=== PATIENT | female | born 1955 | race Caucasian/White ===

== ENCOUNTER → 2021-08-07 | Outpatient (CLI) | payer BC ==
--- NOTE | 2021-08-07 14:14 | Diagnostic Imaging Report ---
EXAMINATION: Right ankle 3 views HISTORY: Right foot pain COMPARISON: None available. FINDINGS: There is soft tissue swelling about the ankle. No fracture is seen. Mortise is intact. No acute fracture is present. There is a small heel spur. IMPRESSION: 1. No fracture in the right ankle. Dictated by: Dictated on workstation # [id number]
--- NOTE | 2021-08-07 16:20 | Diagnostic Imaging Report ---
CLINICAL HISTORY: Right foot pain. COMPARISON: None. TECHNIQUE: Three views of the right foot. FINDINGS: There is no acute fracture or dislocation of the right foot. Alignment is anatomic. A prominent bone spur is seen along the plantar surface of the calcaneus. No suspicious focal osseous lesions are seen. The soft tissues are unremarkable. IMPRESSION: 1. No acute fracture or dislocation in the right foot. 2. Prominent bone spur along the plantar surface of the calcaneus. Dictated by: Dictated on workstation # [id number]
== END ==
LOC: RAD FS 13:37
PROVIDERS: ATTEND Nurse Practitioner
DX: M79.671 Pain in right foot (principal)
CPT/HCPCS: 73610; 73630

== ENCOUNTER → 2021-10-16 | Outpatient (CLI) | payer BC ==
--- NOTE | 2021-10-16 13:48 | Diagnostic Imaging Report ---
INDICATION: Right shoulder pain. COMPARISON: None. FINDINGS: Multiple radiographic views of the right shoulder were obtained. There is no fracture, dislocation, or other acute bony abnormality identified. The soft tissues appear unremarkable. No radiopaque foreign bodies identified. The visualized portions of the right lung are clear. IMPRESSION: No acute fractures or dislocations of the right shoulder. Dictated by: Dictated on workstation # [id number]
== END ==
LOC: RAD FS 13:12
PROVIDERS: ATTEND Nurse Practitioner
DX: M25.511 Pain in right shoulder (principal)
CPT/HCPCS: 73030